=== PATIENT | male | born 1985 | race African-American/Black ===

== ENCOUNTER 2018-05-17 07:07 | Emergency (ER) | payer SELFPAY ==
[2018-05-17 07:34] LABS: ABS Basophils 0 10^3/ul (0-0.2); ABS Eosinophils 0.1 10^3/ul (0-0.6); ABS Lymphocytes 1.2 10^3/ul (1.0-4.8); ABS Monocytes 0.3 10^3/ul (0-0.8); ABS Neutrophils 1.7 10^3/ul (1.5-7.7); ABS Nucleated RBC 0 10^3/ul; Eosinophil % 1.7 %; Hematocrit 45 % (42-52); Hemoglobin 15.3 g/dl (14.0-18.0); Lymphocyte % 35.1 %; Mean Corpuscular HGB Conc 34 g/dl (31-36); Mean Corpuscular Hemoglobin 32 pg (27-31); Mean Corpuscular Volume 94 fL (80-94); Mean Platelet Volume 7.9 fL (7.4-10.4); Nucleated Red Blood Cells % 0.2; Platelet Count 204 10^3/ul (150-450); Red Blood Count 4.75 10^6/ul (4.00-5.40); Red Cell Distribution Width 13 % (10.5-15); White Blood Count 3.3 10^3/ul (3.5-10.8)
[2018-05-17] MEDS ORDERED: levETIRAcetam IV* 500 MG in NS 0.9% 100 ML* 100 ML IVPB ONE (07:41)
--- NOTE | 2018-05-17 07:44 | ED ---
Neurological HPI - HPI Summary HPI Summary: This patient is a 33 year old M presenting to [facility] with a chief complaint of seizures [employer]INTE[employer] WORK[employer]. His friend states a dog was barking and woke him up and then he goes up stairs and the patient was on the floor stumbling and incontinent. His friend states the patient was likely coming out of the seizure when he found him. His last known seizure was 3 months ago. He has a Hx of seizures and states he has not been taking his medication because he does not like the side effects. He states he first starting having seizures 11 years ago. - History of Current Complaint Chief Complaint: EDSeizure Stated Complaint: SEIZURES Time Seen by Provider: 05/17/18 07:14 Hx Obtained From: Patient Onset/Duration: Started minutes ago Onset Severity: Mild Current Severity: None Number of Seizures: 1 Pain Intensity: 0 Pain Scale Used: 0-10 Numeric Associated Signs and Symptoms: Positive: Seizure - Allergy/Home Medications Allergies/Adverse Reactions: Allergies Allergy/AdvReac Type Severity Reaction Status Date / Time No Known Allergies Allergy Verified 05/17/18 07:38 PMH/Surg Hx/FS Hx/Imm Hx Endocrine/Hematology History: Denies: Hx Diabetes Cardiovascular History: Denies: Hx Coronary Artery Disease Neurological History: Reports: Hx Seizures Infectious Disease History: No Infectious Disease History: Denies: Traveled Outside the [place] in Last 30 Days - Family History Known Family History: Negative: Cardiac Disease, Hypertension, Diabetes - Social History Alcohol Use: Occasionally Substance Use Type: Reports: Marijuana Smoking Status (MU): Light Every Day Tobacco Smoker Review of Systems Negative: Fever Neurological: Other - Seizures/convulsions All Other Systems Reviewed And Are Negative: Yes Physical Exam Vital Signs On Initial Exam: Initial Vitals Temp Pulse Resp BP Pulse Ox 96.9 F 63 18 136/73 100 05/17/18 07:13 05/17/18 07:13 05/17/18 07:13 05/17/18 07:13 05/17/18 07:13 Diagnostics - Vital Signs Vital Signs Temp Pulse Resp BP Pulse Ox 05/17/18 07:13 96.9 F 63 18 136/73 100 - Laboratory Lab Results: Lab Results 05/17/18 Range/Units 06:32 WBC 3.3 L (3.5-10.8) 10^3/ul RBC 4.75 (4.00-5.40) 10^6/ul Hgb 15.3 (14.0-18.0) g/dl Hct 45 (42-52) % MCV 94 (80-94) fL MCH 32 H (27-31) pg MCHC 34 (31-36) g/dl RDW 13 (10.5-15) % Plt Count 204 (150-450) 10^3/ul MPV 7.9 (7.4-10.4) fL Neut % (Auto) 52.9 % Lymph % (Auto) 35.1 % [place] % (Auto) 9.8 % Eos % (Auto) 1.7 % Baso % (Auto) 0.5 % Absolute Neuts (auto) 1.7 (1.5-7.7) 10^3/ul Absolute Lymphs (auto) 1.2 (1.0-4.8) 10^3/ul Absolute Monos (auto) 0.3 (0-0.8) 10^3/ul Absolute Eos (auto) 0.1 (0-0.6) 10^3/ul Absolute Basos (auto) 0 (0-0.2) 10^3/ul Absolute Nucleated RBC 0 10^3/ul Nucleated RBC % 0.2 Result Diagrams: 05/17/18 06:32 05/17/18 06:32 Lab Statement: Any lab studies that have been ordered have been reviewed, and results considered in the medical decision making process. - Radiology CXR Radiology Interpretation Completed By: Radiologist Summary of Radiographic Findings: No active cardiopulmonary disease noted. ED Provider has reviewed this report. - EKG 0715 Cardiac Rate: NL EKG Rhythm: Sinus Rhythm - [address] Segment: Normal Ectopy: None Summary of EKG Findings: No ST elevation. Re-Evaluation - Re-Evaluation First Eval Re-Evaluation Time: 09:43 Comment: Discussed results and plan for discharge with patient Course/Dx - Course Assessment/Plan: Blood work without any significant abnormality except for glucose of 111, lactic acid is 2.9 consistent with the seizure episodes. Alcohol level less than 10. In the ED course the patient was given Keppra [address] And discussed [address] Ricketts and he agrees with management. Patient will be given restriction for Keppra 750 BID and follow-up with Dr. Ricketts on May 27. I discussed all the findings and test results with the patient. Patient was instructed to return to the emergency room immediately if any of the symptoms return or worsens. Plan of care was discussed with the patient and understands and agrees. All questions were answered at patient satisfaction. There were no further complaints or concerns. Lung exam before discharge: CTA B/ L. Good air exchange. No wheezing or crackles heard. CVS: S1 and S2 present. No murmurs appreciated. Patient is alert and oriented x 3. Patient is hemodynamically stable. Patient will be discharged home with follow up PCP in the next 2-3 days - Differential Dx Differential Diagnoses Neuro: Positive: Seizure Disorder - Diagnoses Provider Diagnoses: Seizures - Physician Notifications Discussed Care Of Patient With: Alireza Ricketts - Neurology Instructed by Provider To: Have Pt Call For Appt. - Appointment for May 27 Discharge - Sign-Out/Discharge Documenting (check all that apply): Patient Departure - Discharge Patient Received Moderate/Deep Sedation with Procedure: No - Discharge Plan Condition: Stable Disposition: HOME Prescriptions: levETIRAcetam [Keppra] 250 mg PO BID #30 tablet levETIRAcetam TAB* [Keppra TAB*] 500 mg PO BID #30 tab Patient Education Materials: Recurrent Seizures in Adults (ED) Referrals: [facility]IAN REFERRAL [Outside] Additional Instructions: Follow up with Neurology on May 27. Return to ED with any new or worsening symptoms. - Billing Disposition and Condition Condition: STABLE Disposition: Home - Attestation Statements Document Initiated by Yecenia: Yes Documenting Scribe: Ulisses Gutiérrez Provider For Whom Yecenia is Documenting (Include Credential): Tong Jain MD Scribe Attestation: Ulisses Esteves scribed for Tong Jain MD on 05/18/18 at 0830. Scribe Documentation Reviewed: Yes Provider Attestation: The documentation as recorded by the Ulisses wells accurately reflects the service I personally performed and the decisions made by , Tong Jain MD Status of Scribe Document: Viewed
[2018-05-17] MEDS ORDERED: levETIRAcetam IV* 500 MG/5 ML VIAL ONE (07:47)
[2018-05-17 07:49] LABS: INR 0.97 (0.77-1.02)
[2018-05-17 07:50] LABS: ALT 10 U/L (7-52); AST 16 U/L (13-39); Albumin 4.5 g/dL (3.2-5.2); Albumin/Globulin Ratio 1.9 (1-3); Alkaline Phosphatase 45 U/L (34-104); Anion Gap 5 mmol/L (2-11); BUN/Creatinine Ratio 12.1 (8-20); Blood Urea Nitrogen 12 mg/dL (6-24); CO2 Carbon Dioxide 31 mmol/L (22-32); Calcium 9.8 mg/dL (8.6-10.3); Chloride 105 mmol/L (101-111); EGFR African American 106.7 (>60); EGFR Non-African American 88.2 (>60); Globulin 2.4 g/dL (2-4); Glucose 111 mg/dL (70-100); Magnesium 1.9 mg/dL (1.9-2.7); Potassium 4.4 mmol/L (3.5-5.0); Sodium 141 mmol/L (135-145); Total Protein 6.9 g/dL (6.4-8.9)
[2018-05-17 08:24] LABS: Alcohol < 10 mg/dL (<10)
[2018-05-17 08:38] LABS: TSH (Thyroid Stimulating Horm) 2.78 mcIU/mL (0.34-5.60)
[2018-05-17] MEDS ORDERED: Acetaminophen TAB* 325 MG PO ONE (09:21)
[2018-05-17] MEDS ORDERED: levETIRAcetam TAB* 500 MG PO ONE (09:36)
[2018-05-17 09:41] VITALS: BP 122/76
== END 2018-05-17 10:19 | disposition home or self-care (01) ==
LOC: ED 07:07
DX: G40.909 Epilepsy, unspecified, not intractable, without status epilepticus (principal); F17.210 Nicotine dependence, cigarettes, uncomplicated
CPT/HCPCS: 36415; 71045; 80053; 80177; 80320; 83605; 83735; 84443; 85025; 85610; 86703; 93005; 96365; 99284; A9270-GY; G0480

== ENCOUNTER 2018-05-23 05:39 | Emergency (ER) | payer SELFPAY ==
[2018-05-23] MEDS ORDERED: levETIRAcetam IV* 1,000 MG in NS 0.9% 100 ML* 100 ML IVPB ONE (05:55)
--- NOTE | 2018-05-23 06:06 | ED ---
Seizure - HPI Summary HPI Summary: 32-year-old male presents with seizure today. He states he has history of seizures. He states he only takes Keppra on an as-needed basis. He states he had a seizure couple days ago. He has a follow-up with neurology on but has not needed to call to confirm the appointment. He admits to some left shoulder pain but is full range of motion. he denies any chest pain, SOB, or dizziness. no headache. has not picked up his script for keppra since the last time was here. he denies any drug or ETOH use. friend heard him thrashing in room. unsure how long seizure was. patient arrives via ems post itical. states before this week has not had seizure in months. - History Of Current Complaint Chief Complaint: EDSeizure Time Seen by Provider: 05/23/18 05:46 - Allergies/Home Medications Allergies/Adverse Reactions: Allergies Allergy/AdvReac Type Severity Reaction Status Date / Time No Known Allergies Allergy Verified 05/17/18 07:38 PMH/Surg Hx/FS Hx/Imm Hx Endocrine/Hematology History: Denies: Hx Diabetes Cardiovascular History: Denies: Hx Coronary Artery Disease Neurological History: Reports: Hx Seizures Infectious Disease History: No Infectious Disease History: Denies: Traveled Outside the [place] in Last 30 Days - Family History Known Family History: Negative: Cardiac Disease, Hypertension, Diabetes - Social History Alcohol Use: Occasionally Substance Use Type: Reports: Marijuana Smoking Status (MU): Light Every Day Tobacco Smoker Review of Systems Negative: Fever Negative: Chest Pain Negative: Shortness Of Breath Neurological: Other - seizure All Other Systems Reviewed And Are Negative: Yes Physical Exam Triage Information Reviewed: Yes Vital Signs On Initial Exam: Initial Vitals Pulse BP Pulse Ox 69 124/58 99 05/23/18 05:40 05/23/18 05:40 05/23/18 05:40 Vital Signs Reviewed: Yes Appearance: Positive: Well-Appearing Skin: Positive: Warm, Dry Head/Face: Positive: Normal Head/Face Inspection Eyes: Positive: Normal, EOMI, CAREY, Conjunctiva Clear ENT: Positive: Normal ENT inspection, Pharynx normal, TMs normal Respiratory/Lung Sounds: Positive: Clear to Auscultation, Breath Sounds Present Cardiovascular: Positive: Normal, RRR Abdomen Description: Positive: Nontender, Soft Bowel Sounds: Positive: Present Musculoskeletal: Positive: Normal Neurological: Positive: Normal Psychiatric: Positive: Normal Diagnostics - Vital Signs Vital Signs Temp Pulse Resp BP Pulse Ox 05/23/18 05:46 99.1 F 80 16 124/58 98 05/23/18 05:44 74 99 05/23/18 05:40 69 124/58 99 - Laboratory Result Diagrams: 05/23/18 06:09 05/23/18 06:09 Lab Statement: Any lab studies that have been ordered have been reviewed, and results considered in the medical decision making process. - EKG No standard instances Cardiac Rate: NL, Bradycardia EKG Rhythm: Sinus Bradycardia Summary of EKG Findings: sinus bradycardia Re-Evaluation - Re-Evaluation First Eval Re-Evaluation Time: 07:08 Comment: discussed results Course/Dx - Course Course Of Treatment: 32-year-old male presents with seizure today. He states he has history of seizures. He states he only takes Keppra on an as-needed basis. He states he had a seizure couple days ago. He has a follow-up with neurology on 11 but has not needed to call to confirm the appointment. He admits to some left shoulder pain but is full range of motion. he denies any chest pain, SOB, or dizziness. no headache. has not picked up his script for keppra since the last time was here. on exam has normal neuro exam. full ROM shoulder. wbc normal. lactic elevated. gave dose of keppra here. encouraged that needs to start the keppra and flower picker script at pharmacy that was sent last visit. no repeat seizure activity in ED. patient understand and agrees with plan. - Diagnoses Differential Diagnosis/HQI/PQRI: Positive: Drug Toxicity, Metabolic Disorder, Known Seizure Disorder Provider Diagnoses: Seizure Discharge - Sign-Out/Discharge Documenting (check all that apply): Patient Departure Patient Received Moderate/Deep Sedation with Procedure: No - Discharge Plan Condition: Good Disposition: HOME Patient Education Materials: Epilepsy (ED) Referrals: No Primary Care Phys,NOPCP [Primary Care Provider] - Alireza Ricketts MD [Medical Doctor] - Additional Instructions: call neuro office for follow up Take keppra twice a day as previously prescribed Return to ED if develop any new or worsening symptoms - Billing Disposition and Condition Condition: GOOD Disposition: Home
[2018-05-23 06:26] LABS: ABS Basophils 0 10^3/ul (0-0.2); ABS Eosinophils 0 10^3/ul (0-0.6); ABS Lymphocytes 0.9 10^3/ul (1.0-4.8); ABS Monocytes 0.3 10^3/ul (0-0.8); ABS Neutrophils 2.9 10^3/ul (1.5-7.7); ABS Nucleated RBC 0 10^3/ul; Hematocrit 42 % (42-52); Hemoglobin 14.7 g/dl (14.0-18.0); Lymphocyte % 21.1 %; Mean Corpuscular HGB Conc 35 g/dl (31-36); Mean Corpuscular Hemoglobin 32 pg (27-31); Mean Corpuscular Volume 93 fL (80-94); Mean Platelet Volume 7.8 fL (7.4-10.4); Nucleated Red Blood Cells % 0.1; Platelet Count 207 10^3/ul (150-450); Red Blood Count 4.55 10^6/ul (4.00-5.40); Red Cell Distribution Width 13 % (10.5-15); White Blood Count 4.1 10^3/ul (3.5-10.8)
[2018-05-23 06:34] LABS: INR 0.99 (0.77-1.02)
[2018-05-23 06:44] LABS: ALT 11 U/L (7-52); AST 17 U/L (13-39); Albumin 4.3 g/dL (3.2-5.2); Alkaline Phosphatase 45 U/L (34-104); Anion Gap 6 mmol/L (2-11); BUN/Creatinine Ratio 10.5 (8-20); Blood Urea Nitrogen 9 mg/dL (6-24); CO2 Carbon Dioxide 28 mmol/L (22-32); Calcium 9.4 mg/dL (8.6-10.3); Chloride 105 mmol/L (101-111); EGFR African American 126.3 (>60); EGFR Non-African American 104.4 (>60); Globulin 2.2 g/dL (2-4); Glucose 92 mg/dL (70-100); Sodium 139 mmol/L (135-145); Total Protein 6.5 g/dL (6.4-8.9)
[2018-05-23 06:45] LABS: Alcohol < 10 mg/dL (<10)
[2018-05-23 08:18] LABS: Urine Appearance Clear; Urine Bilirubin Negative (Negative); Urine Blood Negative (Negative); Urine Color Straw; Urine Glucose Negative (Negative); Urine Ketones Negative (Negative); Urine Nitrite Negative (Negative); Urine Protein Negative (Negative); Urine Specific Gravity 1.009 (1.010-1.030); Urine Urobilinogen Negative (Negative)
[2018-05-23 08:34] VITALS: BP 123/61
[2018-05-24 09:42] LABS: Barbiturates Urine Screen None Detected (None Detect); Benzodiazepine Urine Screen None Detected (None Detect); Urine Cannabinoids Screen Presumptive Positive (None Detect)
[2018-05-27 13:17] LABS: Neisseria gonorrhoeae (GC) RNA Negative (Negative)
== END 2018-05-23 08:33 | disposition home or self-care (01) ==
LOC: ED 05:39
DX: G40.909 Epilepsy, unspecified, not intractable, without status epilepticus (principal); R00.1 Bradycardia, unspecified; Z72.0 Tobacco use
CPT/HCPCS: 36415; 80053; 80307; 80320; 81003; 83605; 83735; 85025; 85610; 87491; 87591; 93005; 96360; 99282; G0480

== ENCOUNTER 2018-06-24 10:47 | Emergency (ER) | payer MEDICAID ==
[2018-06-24] MEDS ORDERED: LORazepam INJ* 2 MG/ML 1 ML VIAL ONE ×2 (10:55)
--- NOTE | 2018-06-24 10:55 | ED ---
Neurological HPI - HPI Summary HPI Summary: Patient is a 32 y/o M presenting to ED via EMS from [facility] after having a seizure. He was walking down a staircase when seizure onset, patient fell down three steps as a result. Seizure was witnessed by roommate, patient was reported to have been hitting his head on tile floor during seizure. EMS reports patient was maintaining airway, had good perfusion, BG of 104. Multiple contusions and chin laceration are also reported. They note that the patient has become verbal upon arrival to ED. However, patient is confused in ED, level 5 caveat due to EMS. In room, patient repeated attempts to leave the room and is combative with staff. PMHx of seizures, review of medical records show that patient is noted to be combative during post-ictal state. Home medications and allergies are reviewed. - History of Current Complaint Stated Complaint: SEIZURES Hx Obtained From: EMS, Medical Records Hx From Patient Unobtainable Due To: Altered Mental Status Onset/Duration: Sudden Onset - seizure, Still Present - AMS Timing: Intermittent Episodes Lasting: Neurological Deficit Location: Generalized Character: Other: - AMS, seizure Syncope Context: Witnessed, Exertion - walking down staircase Frequency: Episodes x___ - 1 episode reported Aggravating: Nothing Alleviating: Nothing Associated Signs and Symptoms: Positive: Agitation, AMS - Allergy/Home Medications Allergies/Adverse Reactions: Allergies Allergy/AdvReac Type Severity Reaction Status Date / Time No Known Allergies Allergy Verified 06/24/18 11:28 PMH/Surg Hx/FS Hx/Imm Hx Endocrine/Hematology History: Denies: Hx Diabetes Cardiovascular History: Denies: Hx Coronary Artery Disease Sensory History: Denies: Hx Contacts or Glasses, Hx Hearing Aid Opthamlomology History: Denies: Hx Contacts or Glasses Neurological History: Reports: Hx Seizures - Family History Known Family History: Negative: Cardiac Disease, Hypertension, Diabetes - Social History Alcohol Use: UTD Hx Substance Use: No Substance Use Type: Reports: Marijuana Smoking Status (MU): Light Every Day Tobacco Smoker Review of Systems - ROS Summary Review of Systems Summary: LEVEL 5 CAVEAT, AMS Negative: Fever - on vitals, temp is 97.5 F Skin: Other - POSITIVE - CHIN LACERATION, CONTUSIONS Neurological: Other - POSITIVE - SEIZURES, AMS All Other Systems Reviewed And Are Negative: No - Comments Additional Review of Systems Comments: LEVEL 5 CAVEAT, AMS Physical Exam - Summary Physical Exam Summary: General: Well appearing Cardiovascular: Skin is well perfused Pulmonary: No respiratory distress, no tachypnea Abdomen: Non-distended Skin: Warm, pink, dry; hematoma at right parietal cortex, multiple contusions to face on right side, abrasion to left collar bone, laceration over chin with wet blood visible. Psych: Normal affect Neuro: alert but confused, GCS 14, moving all extremities, level 5 caveat due to AMS. Triage Information Reviewed: Yes Vital Signs On Initial Exam: Initial Vitals Temp Pulse Resp BP Pulse Ox 97.5 F 88 18 130/83 95 06/24/18 10:51 06/24/18 10:51 06/24/18 10:51 06/24/18 10:51 06/24/18 10:51 Vital Signs Reviewed: Yes Completion Of Physical Exam Limited Due To: Level 5 Procedures - Procedure Summary Procedure Summary: Patient has a 1 cm lip/chin laceration that appears to be [id number]. 2 cc lido on exterior of chin used, patient had 2 sutures 5.0 nylon, interior of lip, 3 cc lido, 2 sutures of 5.0 vicryl used. No complications. - Laceration/Wound Repair chin laceration Location: mouth - lip laceration Anesthesia: Local, Lido lip laceration Location: mouth - lip laceration Description: Linear - 1 cm lip laceration that is through and through Anesthesia: Local, Lido Length, Depth and Shape: 1 cm Suture Type: Nylon - 5.0 used , Vicryl - 2 on interior of lip 1 Location: face - chin, mouth - interior lip Description: Linear - 1 cm chin/lip laceration that appears to be through-and- through Anesthesia: Local, Lido Length, Depth and Shape: 1 cm Laceration/Wound Explored: clean Closure: Single Layer Suture Type: Nylon - 2 sutures of 5.0 used , Vicryl - 2 on interior of lip Number of Sutures: 4 Diagnostics - Laboratory Result Diagrams: 06/24/18 11:17 06/24/18 11:17 Lab Statement: Any lab studies that have been ordered have been reviewed, and results considered in the medical decision making process. - Radiology CHEST X-RAY Radiology Interpretation Completed By: Radiologist Summary of Radiographic Findings: CXR IMPRESSION: NO ACTIVE CARDIOPULMONARY DISEASE IS NOTED. THIS REPORT WAS REVIEWED BY DR. HUSSEIN. LEFT CLAVICLE X-RAY Radiology Interpretation Completed By: Radiologist Summary of Radiographic Findings: LEFT CLAVICLE IMPRESSION: No fracture of the left clavicle is noted. This report was reviewed by Dr. Hussein. - CT BRAIN CT CT Interpretation Completed By: Radiologist Summary of CT Findings: BRAIN CT IMPRESSION: NO ACUTE INTRACRANIAL PATHOLOGY. THIS REPORT WAS REVIEWED BY DR. HUSSEIN. MAXILLOFACIAL CT CT Interpretation Completed By: Radiologist Summary of CT Findings: MAXILLOFACIAL CT IMPRESSION: NO FACIAL FRACTURE. THIS REPORT WAS REVIEWED BY DR. HUSSEIN. CERVICAL SPINE CT CT Interpretation Completed By: Radiologist Summary of CT Findings: CERVICAL SPINE CT IMPRESSION: NO EVIDENCE FOR FRACTURE. THIS REPORT WAS REVIEWED BY DR. HUSSEIN. - EKG 1138 Cardiac Rate: NL - rate of 67 BPM EKG Rhythm: Sinus Rhythm Summary of EKG Findings: EKG showed sinus rhythm with rate of 67 BPM, normal axis, normal [place], normal QRS, normal QTc, T waves are normal, early repolarization, normal EKG. Re-Evaluation - Re-Evaluation First Eval Re-Evaluation Time: 11:12 Comment: More calm, more cooperative, but still confused. Second Eval Re-Evaluation Time: 13:32 Comment: Patient is screaming in his room about pain at his jaw, pain medication to be given. Third Eval Re-Evaluation Time: 14:16 Comment: Laceration repair was done. Course/Dx - Course Course Of Treatment: Patient is a 32 y/o M presenting to ED via EMS from [facility] after having a seizure. He was walking down a staircase when seizure onset, patient fell down three steps as a result. Seizure was witnessed by roommate, patient was reported to have been hitting his head on tile floor during seizure. EMS reports patient was maintaining airway, had good perfusion, BG of 104. Multiple contusions and chin laceration are also reported. They note that the patient has become verbal upon arrival to ED. However, patient is confused in ED, level 5 caveat due to EMS. PMHx of seizures, review of medical records show that patient is noted to be combative during post-ictal state. On physical exam, patient has hematoma right parietal cortex, multiple contusions to face on right side, abrasion to left collar bone, laceration over chin, wet blood is visible. Patient moving all extremities, alert but confused, GCS 14, level 5 caveat due to AMS. EKG showed sinus rhythm with rate of 67 BPM, normal axis, normal NJ, normal QRS, normal QTc, T waves are normal, early repolarization, normal EKG. BRAIN CT IMPRESSION: NO ACUTE INTRACRANIAL PATHOLOGY. CERVICAL SPINE CT IMPRESSION: NO EVIDENCE FOR FRACTURE. MAXILLOFACIAL CT IMPRESSION: NO FACIAL FRACTURE. LEFT CLAVICLE IMPRESSION: No fracture of the left clavicle is noted. CXR IMPRESSION: NO ACTIVE CARDIOPULMONARY DISEASE IS NOTED. Labs showed MCV 95, MCH 32, absolute neuts 0.8, glucose 107, lactic acid 1.2, AST 45. Patient was negative for serum alc. Patient has a 1 cm lip/chin laceration that is [id number]. 2 cc lido on exterior of chin used, patient had 2 sutures 5.0 nylon, interior of lip, 3 cc lido, 2 sutures of 5.0 vicryl used. No complications. Patient's case was discussed with Dr. Leal, oral surgery, at 1511, Dr. Velasco recommends out patient follow up and augmentin for the patient. During ED course, patient received 4 mg morphine IM, Ativan 2 mg IM, Let Gel 3 ml TOPICAL ONCE, and augmentin 875 mg PO ONCE. Patient was discharged to home with oral surgery follow up. - Diagnoses Provider Diagnoses: Seizure disorder, Lip laceration - Physician Notifications Discussed Care Of Patient With: Nigel Leal JR Time Discussed With Above Provider: 15:11 Instructed by Provider To: Other - Patient's case was discussed with Dr. Leal , oral surgery, at 1511, Dr. Velasco recommends out patient follow up and augmentin for the patient. Discharge - Sign-Out/Discharge Documenting (check all that apply): Patient Departure - discharge Patient Received Moderate/Deep Sedation with Procedure: No - Discharge Plan Condition: Stable Disposition: HOME Prescriptions: Amoxicillin/Clavulanate TAB* [Augmentin TAB 875*] 875 mg PO BID #19 tab Patient Education Materials: Laceration (ED), Epilepsy (ED) Print Language: [place] Referrals: Nigel Leal JR, [facility] [Doctor of Dental Surgery] - Additional Instructions: You need to follow-up with the oral surgeon, Dr. Scutari, to have your jaw wound evaluated. External stitches need to be removed in 7d. - Billing Disposition and Condition Condition: STABLE Disposition: Home - Attestation Statements Document Initiated by Yecenia: Yes Documenting Scribe: SHYANN LANDAVERDE Provider For Whom Yecenia is Documenting (Include Credential): ZAYNAB SHRESTHA MD Scribe Attestation: I, SHYANN LANDAVERDE, scribed for ZAYNAB HUSSEIN MD on 06/24/18 at 2213. Scribe Documentation Reviewed: Yes Provider Attestation: The documentation as recorded by the scribeSHYANN accurately reflects the service I personally performed and the decisions made by me, ZAYNAB HUSSEIN MD Status of Scribe Document: Viewed
[2018-06-24] MEDS ORDERED: LORazepam INJ* 2 MG/ML 1 ML VIAL IM ONE (10:57)
[2018-06-24 11:23] LABS: ABS Basophils 0 10^3/ul (0-0.2); ABS Eosinophils 0 10^3/ul (0-0.6); ABS Lymphocytes 0.8 10^3/ul (1.0-4.8); ABS Monocytes 0.3 10^3/ul (0-0.8); ABS Neutrophils 3.2 10^3/ul (1.5-7.7); ABS Nucleated RBC 0 10^3/ul; Eosinophil % 0.4 %; Hematocrit 46 % (42-52); Hemoglobin 15.6 g/dl (14.0-18.0); Mean Corpuscular HGB Conc 34 g/dl (31-36); Mean Corpuscular Hemoglobin 32 pg (27-31); Mean Corpuscular Volume 95 fL (80-94); Mean Platelet Volume 8.4 fL (7.4-10.4); Nucleated Red Blood Cells % 0.1; Platelet Count 164 10^3/ul (150-450); Red Blood Count 4.84 10^6/ul (4.00-5.40); Red Cell Distribution Width 13 % (10.5-15); White Blood Count 4.3 10^3/ul (3.5-10.8)
[2018-06-24 11:31] LABS: INR 0.94 (0.77-1.02)
[2018-06-24 11:41] LABS: ALT 34 U/L (7-52); AST 45 U/L (13-39); Albumin 4.4 g/dL (3.2-5.2); Albumin/Globulin Ratio 1.9 (1-3); Alkaline Phosphatase 44 U/L (34-104); Anion Gap 5 mmol/L (2-11); BUN/Creatinine Ratio 10.1 (8-20); Blood Urea Nitrogen 9 mg/dL (6-24); CO2 Carbon Dioxide 28 mmol/L (22-32); Calcium 9.1 mg/dL (8.6-10.3); Chloride 106 mmol/L (101-111); EGFR African American 121.4 (>60); EGFR Non-African American 100.4 (>60); Globulin 2.3 g/dL (2-4); Glucose 107 mg/dL (70-100); Magnesium 1.9 mg/dL (1.9-2.7); Sodium 139 mmol/L (135-145); Total Protein 6.7 g/dL (6.4-8.9)
[2018-06-24 12:01] LABS: Alcohol < 10 mg/dL (<10)
[2018-06-24] MEDS ORDERED: Morphine 10 MG/ML VIAL (1 ml) IM ONE (13:32)
[2018-06-24] MEDS ORDERED: Lidocaine/Epineph/Tetraca GEL* 3 ML GEL IN SYR TOPICAL ONE (13:33)
[2018-06-24] MEDS ORDERED: Lidocaine/Epineph/Tetraca GEL* 3 ML GEL IN SYR ONE (13:34)
[2018-06-24] MEDS ORDERED: Morphine 4 MG/ML VIAL (1 ml) 4 MG/ML VIAL ONE ×2 (13:34)
[2018-06-24] MEDS ORDERED: Morphine 4 MG/ML VIAL (1 ml) 4 MG/ML VIAL IV ONE (13:39)
[2018-06-24] MEDS ORDERED: Amoxicillin/Clavulanate TAB* 875 MG PO ONE ×2 (15:15)
[2018-06-24 15:22] VITALS: BP 100/56
== END 2018-06-24 15:27 | disposition home or self-care (01) ==
LOC: ED 10:47
DX: S01.511A Laceration without foreign body of lip, initial encounter (principal); G40.909 Epilepsy, unspecified, not intractable, without status epilepticus; W10.9XXA Fall (on) (from) unspecified stairs and steps, initial encounter; Y92.9 Unspecified place or not applicable; F17.210 Nicotine dependence, cigarettes, uncomplicated
CPT/HCPCS: 12011; 36415; 70450; 70486; 71045; 72125; 80053; 80320; 83605; 83735; 85025; 85610; 93005; 96372; 96374; 99283; A9270-GY; G0480; J2060; J2270

== ENCOUNTER 2018-08-13 10:53 | Emergency (ER) | payer MEDICAID, OTHER ==
--- NOTE | 2018-08-13 11:26 | ED ---
Seizure - HPI Summary HPI Summary: 32 year old male presents to the emergency department via ALS after experiencing a seizure. According to ALS, the seizure was witnessed by his roommate and lasted for 1 minute. Pt has a history of seizures with the last one occurring a month ago. He - History Of Current Complaint Chief Complaint: EDSeizure Time Seen by Provider: 08/13/18 11:07 Hx Obtained From: Patient - Allergies/Home Medications Allergies/Adverse Reactions: Allergies Allergy/AdvReac Type Severity Reaction Status Date / Time No Known Allergies Allergy Verified 08/13/18 11:09 PMH/Surg Hx/FS Hx/Imm Hx Endocrine/Hematology History: Denies: Hx Diabetes Cardiovascular History: Denies: Hx Coronary Artery Disease Sensory History: Denies: Hx Contacts or Glasses, Hx Hearing Aid Opthamlomology History: Denies: Hx Contacts or Glasses Neurological History: Reports: Hx Seizures Infectious Disease History: No Infectious Disease History: Denies: Traveled Outside the [place] in Last 30 Days - Family History Known Family History: Negative: Cardiac Disease, Hypertension, Diabetes - Social History Alcohol Use: unknown Hx Substance Use: No Substance Use Type: Reports: Marijuana Smoking Status (MU): Light Every Day Tobacco Smoker Physical Exam Vital Signs On Initial Exam: Initial Vitals Temp Pulse Resp BP Pulse Ox 98.1 F 63 15 126/64 99 08/13/18 11:00 08/13/18 11:00 08/13/18 11:00 08/13/18 11:00 08/13/18 11:00 Diagnostics - Vital Signs Vital Signs Temp Pulse Resp BP Pulse Ox 08/13/18 11:01 63 13 98 08/13/18 11:00 98.1 F 72 13 126/64 98 - Laboratory Lab Statement: Any lab studies that have been ordered have been reviewed, and results considered in the medical decision making process. Discharge - Discharge Plan Referrals: No Primary Care Phys,NOPCP [Primary Care Provider] -
[2018-08-13 11:58] LABS: ABS Basophils 0 10^3/ul (0-0.2); ABS Eosinophils 0 10^3/ul (0-0.6); ABS Monocytes 0.4 10^3/ul (0-0.8); ABS Neutrophils 2.7 10^3/ul (1.5-7.7); ABS Nucleated RBC 0 10^3/ul; Eosinophil % 1.1 %; Hematocrit 45 % (36-46); Hemoglobin 15.8 g/dL (14.0-18.0); Lymphocyte % 24.7 %; Mean Corpuscular HGB Conc 35 g/dL (31-36); Mean Corpuscular Hemoglobin 32 pg (27-31); Mean Corpuscular Volume 93 fL (80-94); Nucleated Red Blood Cells % 0.1; Platelet Count 207 10^3/uL (150-450); Red Blood Count 4.87 10^6 /uL (4.18-5.48); Red Cell Distribution Width 12 % (10.5-15); White Blood Count 4.2 10^3/uL (3.5-10.8)
--- NOTE | 2018-08-13 12:01 | ED ---
Neurological HPI - HPI Summary HPI Summary: This patient is a 32 year old M arriving to the ER via ALS from home with a chief complaint of one minute witness tonic-clonic seizure. Patient is post- ictal on arrival and confused. However, in the room during evaluation, he is A& Ox3. He does not remember the incident. He denies incontinence. Patient is not taking Keppra regularly nor Augmentin. He reports his last seizure was this April. Patient has history of seizures but not DM or cardiac disease. No FHx of DM, cardiac disease, HTN. Patient smokes cigarettes, drinks beer, and uses marijuana. - History of Current Complaint Chief Complaint: EDSeizure Stated Complaint: SEISURE PER EMS Time Seen by Provider: 08/13/18 11:07 Hx Obtained From: Patient Onset/Duration: Started hours ago - This morning, Resolved - not having seizure Timing: Sudden Onset Current Severity: None - pain is denied Number of Seizures: 1 Pain Intensity: 0 Pain Scale Used: 0-10 Numeric Character: Other: - seizure Syncope Context: Witnessed - witnessed seizure Frequency: Episodes x___ - 1 reported Aggravating: Nothing Alleviating: Nothing Associated Signs and Symptoms: Positive: Seizure - since resolved. Negative: Incontinent Bladder/Bowel Similar Episode/Dx as: Last seizure april - Allergy/Home Medications Allergies/Adverse Reactions: Allergies Allergy/AdvReac Type Severity Reaction Status Date / Time No Known Allergies Allergy Verified 08/13/18 11:09 PMH/Surg Hx/FS Hx/Imm Hx Endocrine/Hematology History: Denies: Hx Diabetes Cardiovascular History: Denies: Hx Coronary Artery Disease Sensory History: Denies: Hx Contacts or Glasses, Hx Hearing Aid Opthamlomology History: Denies: Hx Contacts or Glasses Neurological History: Reports: Hx Seizures Infectious Disease History: No Infectious Disease History: Denies: Traveled Outside the [place] in Last 30 Days - Family History Known Family History: Negative: Cardiac Disease, Hypertension, Diabetes - Social History Alcohol Use: Occasionally Hx Substance Use: Yes Substance Use Type: Reports: Marijuana Hx Tobacco Use: Yes Smoking Status (MU): Light Every Day Tobacco Smoker Review of Systems Negative: Fever - on vitals, temp 98.1 F Neurological: Other - Confused upon arrival, Seizure this morning All Other Systems Reviewed And Are Negative: Yes Physical Exam - Summary Physical Exam Summary: VITAL SIGNS: Reviewed. GENERAL: Patient is a well-developed and nourished male who is lying comfortable in the stretcher.Patient is not in any acute respiratory distress. HEAD AND FACE: No signs of trauma. No ecchymosis, hematomas or skull depressions. No sinus tenderness. EYES: PERRLA, EOMI x 2, No injected conjunctiva, no nystagmus. No photophobia. EARS: Hearing grossly intact. Ear canals and tympanic membranes are within normal limits. MOUTH: Oropharynx within normal limits. Small abrasion on tongue NECK: Supple, trachea is midline, no adenopathy, no JVD, no carotid bruit, no c- spine tenderness, neck with full ROM. No meningeal signs, no Kernig's or brudzinskis signs. CHEST: Symmetric, no tenderness at palpation LUNGS: Clear to auscultation bilaterally. No wheezing or crackles. CVS: Regular rate and rhythm, S1 and S2 present, no murmurs or gallops appreciated. ABDOMEN: Soft, non-tender. No signs of distention. No rebound no guarding, and no masses palpated. Bowel sounds are normal. EXTREMITIES: FROM in all major joints, no edema, no cyanosis or clubbing. NEURO: Slight confused secondary to post-ictal state. Speech is normal and follows commands. SKIN: Dry and warm GCS: 15 Triage Information Reviewed: Yes Vital Signs On Initial Exam: Initial Vitals Temp Pulse Resp BP Pulse Ox 98.1 F 63 15 126/64 99 08/13/18 11:00 08/13/18 11:00 08/13/18 11:00 08/13/18 11:00 08/13/18 11:00 Vital Signs Reviewed: Yes Diagnostics - Vital Signs Vital Signs Temp Pulse Resp BP Pulse Ox 08/13/18 11:01 63 13 98 08/13/18 11:00 98.1 F 72 13 126/64 98 - Laboratory Result Diagrams: 08/13/18 11:46 08/13/18 11:41 Lab Statement: Any lab studies that have been ordered have been reviewed, and results considered in the medical decision making process. - Radiology CXR Radiology Interpretation Completed By: ED Physician Summary of Radiographic Findings: no acute pathology, pending official report. - EKG 1138 Cardiac Rate: Bradycardia - rate of 57 BPM EKG Rhythm: Sinus Bradycardia Summary of EKG Findings: EKG showed sinus bradycardia with rate of 57 BPM, no ST elevations. Re-Evaluation - Re-Evaluation First Eval Re-Evaluation Time: 13:33 Comment: Plan of care was discussed with the patient and understands and agrees. All questions were answered at patient satisfaction. There were no further complaints or concerns. Lung exam before discharge: CTA B/L. Good air exchange. No wheezing or crackles heard. CVS: S1 and S2 present. No murmurs appreciated. Patient is alert and oriented x 3. Patient is hemodynamically stable. Patient will be discharged home with follow up PCP in the next 2-3 days Course/Dx - Course Assessment/Plan: Patient is a 32-year-old male who presents to the emergency department with a chief complaint of having a seizure. The patient has history of epilepsy for which the patient is put to be taking Keppra. However he reports that he is not very consistent with taking Keppra. He reports that he recently moved to this area from [place]. Test results without any significant abnormality except for total bilirubin of 1.6. Patient was given Keppra 750 mg By mouth. I discussed my physical exam and findings with Dr. Rocha from neurology who recommends for the patient to be discharged and follow- up at his office. I discussed all the findings and test results with the patient and he agrees. He already has prescription for Keppra he will continue taking medications. Plan of care was discussed with the patient and understands and agrees. All questions were answered at patient satisfaction. There were no further complaints or concerns. Lung exam before discharge: CTA B/ L. Good air exchange. No wheezing or crackles heard. CVS: S1 and S2 present. No murmurs appreciated. Patient is alert and oriented x 3. Patient is hemodynamically stable. Patient will be discharged home with follow up PCP in the next 2-3 days - Diagnoses Provider Diagnoses: Seizure - Physician Notifications Discussed Care Of Patient With: Donavon Rocha Time Discussed With Above Provider: 13:19 Instructed by Provider To: Other - Patient's case was discussed with Dr. Rocha, Dr. Rocha is agreeable with management, patient will be discharged to home and will follow up with Dr. Rocha in office. Discharge - Sign-Out/Discharge Documenting (check all that apply): Patient Departure - Discharge Patient Received Moderate/Deep Sedation with Procedure: No - Discharge Plan Condition: Stable Disposition: HOME Referrals: [facility] [Outside] - 3 Days Donavon Rocha MD [Medical Doctor] - 3 Days Additional Instructions: Follow up with your primary care provider and Dr. Rocha (neurologist) in 3 days. RETURN TO THE ER FOR WORSENING OR CHANGING SYMPTOMS. - Billing Disposition and Condition Condition: STABLE Disposition: Home - Attestation Statements Document Initiated by Scribe: Yes Documenting Scribe: Ronnie Estevez Provider For Whom Yecenia is Documenting (Include Credential): Tong Jain MD Scribe Attestation: IRonnie, scribed for Tong Jain MD on 08/13/18 at 2155. Scribe Documentation Reviewed: Yes Provider Attestation: The documentation as recorded by the scribruperto, Ronnie Estevez accurately reflects the service I personally performed and the decisions made by me, Tong Jain MD Status of Scribe Document: Viewed
[2018-08-13 12:07] LABS: INR 1.11 (0.82-1.09)
[2018-08-13 12:11] LABS: Albumin 4.9 g/dL (3.2-5.2); BUN/Creatinine Ratio 15.2 (8-20); Calcium 9.5 mg/dL (8.6-10.3); EGFR African American 116.9 (>60); EGFR Non-African American 96.6 (>60); Globulin 2.5 g/dL (2-4); Magnesium 1.9 mg/dL (1.9-2.7); Potassium 3.8 mmol/L (3.5-5.0); Total Bilirubin 1.6 mg/dL (0.2-1.0); Total Protein 7.4 g/dL (6.4-8.9)
[2018-08-13 12:56] LABS: TSH (Thyroid Stimulating Horm) 2.5 mcIU/mL (0.34-5.60)
[2018-08-13] MEDS ORDERED: levETIRAcetam TAB* 500 MG PO ONE (13:28)
[2018-08-13 14:30] VITALS: BP 110/54
== END 2018-08-13 14:28 | disposition home or self-care (01) ==
LOC: ED 10:53
DX: G40.909 Epilepsy, unspecified, not intractable, without status epilepticus (principal); F17.210 Nicotine dependence, cigarettes, uncomplicated
CPT/HCPCS: 36415; 71045; 80053; 80177; 83605; 83735; 84443; 85025; 85610; 93005; 99283; A9270-GY

== ENCOUNTER 2018-09-20 05:05 | Emergency (ER) | payer MEDICAID, OTHER ==
--- NOTE | 2018-09-20 05:45 | ED ---
Seizure - HPI Summary HPI Summary: Pt. is a 32 y.o male who presents to the ER for evaluation after an unwitnessed seizure that occurred this am. Pt. has a hx of seizures and is rx Keppra 750mg BID by neurology. Pt. states he does not like the way it makes him feel and typically takes "lower dose" (250mg tablet.) Pt. states he is currently staying at the [employer] [facility]. Pt. states he was in his bed sleeping this morning when he states he woke up after a seizure. Pt. states he awoke in bed and did not fall to the ground. Pt. denies injury. Denies recent illness, fever, cough, CP, SOB, abd. pain, V/D. Sxs are moderate in severity. No current modifying factors. Pt. states after his seizure this morning he took 250mg Keppra and went to the [employer] help desk associate and asked employee if they could watch him to see if he had another seizure. Employee said they were not able to watch him so he called 911. - History Of Current Complaint Chief Complaint: EDSeizure Time Seen by Provider: 09/20/18 05:36 Hx Obtained From: Patient - Allergies/Home Medications Allergies/Adverse Reactions: Allergies Allergy/AdvReac Type Severity Reaction Status Date / Time No Known Allergies Allergy Verified 08/13/18 11:09 PMH/Surg Hx/FS Hx/Imm Hx Previously Healthy: Yes Endocrine/Hematology History: Denies: Hx Diabetes Cardiovascular History: Denies: Hx Coronary Artery Disease Sensory History: Denies: Hx Contacts or Glasses, Hx Hearing Aid Opthamlomology History: Denies: Hx Contacts or Glasses Neurological History: Reports: Hx Seizures Infectious Disease History: No Infectious Disease History: Denies: Traveled Outside the [place] in Last 30 Days - Family History Known Family History: Negative: Cardiac Disease, Hypertension, Diabetes - Social History Occupation: Unemployed Lives: Alone Alcohol Use: Occasionally Hx Substance Use: Yes Substance Use Type: Reports: Marijuana Hx Tobacco Use: Yes Smoking Status (MU): Light Every Day Tobacco Smoker Review of Systems Constitutional: Negative Negative: Fever, Chills Eyes: Negative ENT: Negative Cardiovascular: Negative Respiratory: Negative Gastrointestinal: Negative Negative: Abdominal Pain, Vomiting, Diarrhea Musculoskeletal: Negative Skin: Negative Neurological: Other - seizure All Other Systems Reviewed And Are Negative: Yes Physical Exam Triage Information Reviewed: Yes Vital Signs On Initial Exam: Initial Vitals Temp Pulse Resp BP Pulse Ox 98 F 59 16 118/63 100 09/20/18 05:12 09/20/18 05:12 09/20/18 05:12 09/20/18 05:12 09/20/18 05:12 Vital Signs Reviewed: Yes Appearance: Positive: Well-Appearing - Pt. lying in bed with sweatshirt over his head. Easily arousable. Answers questions appropriately. Awake, alert and O x 3. Skin: Positive: Warm, Dry Head/Face: Positive: Normal Head/Face Inspection. Negative: Cephalohematoma Eyes: Positive: Normal, EOMI, CAREY, Conjunctiva Clear Neck: Positive: Supple, Nontender Respiratory/Lung Sounds: Positive: Clear to Auscultation, Breath Sounds Present Cardiovascular: Positive: Normal, RRR Musculoskeletal: Positive: Normal, Strength/ROM Intact - moving all 4 extremities without pain. Neurological: Positive: Normal, Alert, Oriented to Person Place, Time, CN Intact II-III Psychiatric: Positive: Affect/Mood Appropriate - [place] Coma Scale Best Eye Response: 4 - Spontaneous Best Motor Response: 6 - Obeys Commands Best Verbal Response: 5 - Oriented Coma Scale Total: 15 Diagnostics - Vital Signs Vital Signs Temp Pulse Resp BP Pulse Ox 09/20/18 05:12 98 F 59 16 118/63 100 - Laboratory Result Diagrams: 09/20/18 06:05 09/20/18 06:05 Lab Statement: Any lab studies that have been ordered have been reviewed, and results considered in the medical decision making process. Course/Dx - Course Course Of Treatment: Pt. presenting after seizure per pt. He is afebrile and stable VS. On exam pt. is awake, alert and oriented x 3. No signs of injury. Will check basic labs. Pt. was given an additional 500mg Keppra since he only took 250mg today. ECG done at 611 shows a sinus bradycardia of 49bpm, normal axis, no STEMI, similar to prior tracing. Labs are unremarkable. Pt. has add no seizure activity in ED. Pt. states he has a neurology apt. on 09/23. Pt. states he does not need a refill on his medications. Strongly advised pt. to take his Keppra 750mg BID as prescribed. To return to ER if sxs change or worsen. Pt. understands and agrees with plan. - Diagnoses Differential Diagnosis/HQI/PQRI: Positive: Metabolic Disorder, Known Seizure Disorder Provider Diagnoses: Seizure disorder, Noncompliance with medications Discharge - Sign-Out/Discharge Documenting (check all that apply): Patient Departure Patient Received Moderate/Deep Sedation with Procedure: No - Discharge Plan Condition: Improved Disposition: HOME Patient Education Materials: Recurrent Seizures in Adults (ED) Referrals: Doc Garcia MD [Medical Doctor] - Additional Instructions: Follow up with neurology as scheduled for on 09/23 Take Keppra 750mg every 12 hours as prescribed Return to ER if symptoms change or worsen - Billing Disposition and Condition Condition: IMPROVED Disposition: Home
[2018-09-20] MEDS ORDERED: levETIRAcetam TAB* 500 MG PO ONE (05:55)
[2018-09-20 06:20] LABS: ABS Lymphocytes 0.7 10^3/ul (1.0-4.8); ABS Monocytes 0.6 10^3/ul (0-0.8); Eosinophil % 0.3 %; Hematocrit 42 % (42-52); Hemoglobin 14.7 g/dL (14.0-18.0); Lymphocyte % 7.7 %; Mean Corpuscular HGB Conc 35 g/dL (31-36); Mean Corpuscular Hemoglobin 33 pg (27-31); Mean Corpuscular Volume 92 fL (80-94); Mean Platelet Volume 7.8 fL (7.4-10.4); Nucleated Red Blood Cells % 0.1; Platelet Count 242 10^3/uL (150-450); Red Blood Count 4.52 10^6 /uL (4.18-5.48); Red Cell Distribution Width 13 % (10-15); White Blood Count 9.5 10^3/uL (3.5-10.8)
[2018-09-20 06:36] LABS: Albumin 4.4 g/dL (3.2-5.2); BUN/Creatinine Ratio 15.6 (8-20); Calcium 9.4 mg/dL (8.6-10.3); EGFR African American 143.5 (>60); EGFR Non-African American 118.6 (>60); Globulin 2.2 g/dL (2-4); Potassium 4.3 mmol/L (3.5-5.0); Total Bilirubin 1.1 mg/dL (0.2-1.0); Total Protein 6.6 g/dL (6.4-8.9)
[2018-09-20 07:45] VITALS: BP 119/81
== END 2018-09-20 07:44 | disposition home or self-care (01) ==
LOC: ED 05:05
DX: G40.909 Epilepsy, unspecified, not intractable, without status epilepticus (principal); T42.6X6A Underdosing of other antiepileptic and sedative-hypnotic drugs, initial encounter; Z91.128 Patient's intentional underdosing of medication regimen for other reason; Y92.9 Unspecified place or not applicable; R00.1 Bradycardia, unspecified; F17.200 Nicotine dependence, unspecified, uncomplicated
CPT/HCPCS: 36415; 80053; 83605; 83735; 85025; 93005; 99283; A9270-GY

== ENCOUNTER 2018-09-23 08:38 | Emergency (ER) | payer OTHER ==
[2018-09-23] MEDS ORDERED: levETIRAcetam 1000MG IVPREMIX* 1,000 MG/100 ML BAG IVPB ONE (08:47)
--- NOTE | 2018-09-23 08:50 | ED ---
Altered Mental Status - HPI Summary HPI Summary: The patient is a 32 y/o M arriving by ambulance to [facility] with a chief complaint of seizure with LOC and unresponsiveness immediately [employer]. Per EMS, the patient was found in the hotel lobby in the prone position after sustaining a seizure in which someone helped him to the ground. When EMS arrived, he was unresponsive , but he began to regain consciousness in route. In the ambulance, he had a blood sugar of 33, but BP and HR were normal. In the ED, the patient is awake and states that he isn't sure what happened. He additionally c/o headache, which is rated 8/10 in severity. He denies fever, chills, erythema of eyes, sore throat, CP, SOB, cough, abdominal pain, N/V, dysuria, hematuria, myalgia, edema, rash, or dizziness. He has hx of seizures and had a planned appointment with Dr. Rocha today at 1000. He takes Keppra, but hasn't taken it for the last three days since he last had a seizure and was in the ED but otherwise hasn't been sick recently. No hx of DM. Last ate breakfast this morning with a lot of apple juice. Current everyday smoker, occasional EtOH (none last night), marijuana use. - History Of Current Complaint Stated Complaint: SEISURES/AMS PER EMS Hx Obtained From: Patient Onset/Duration: Resolved Timing: Lasting Minutes Severity Initially: Severe Severity Currently: Mild Character: Responsiveness Aggravating Factor(s): Other - hasn't taken seizure medication in three days Associated Signs And Symptoms: Positive: Seizure, Headache. Negative: Dizziness , Nausea, Vomiting, Fever Related History: Seizure - Allergies/Home Medications Allergies/Adverse Reactions: Allergies Allergy/AdvReac Type Severity Reaction Status Date / Time No Known Allergies Allergy Verified 08/13/18 11:09 Home Medications: Home Medications levETIRAcetam TAB* [Keppra TAB*] 250 mg PO BID 09/23/18 [History Confirmed 09/23] levETIRAcetam TAB* [Keppra TAB*] 500 mg PO BID 09/23/18 [History Confirmed 09/23] PMH/Surg Hx/FS Hx/Imm Hx Endocrine/Hematology History: Denies: Hx Diabetes Cardiovascular History: Denies: Hx Coronary Artery Disease Sensory History: Denies: Hx Contacts or Glasses, Hx Hearing Aid Opthamlomology History: Denies: Hx Contacts or Glasses Neurological History: Reports: Hx Seizures - Surgical History Surgical History: None Surgery Procedure, Year, and Place: none - Family History Known Family History: Negative: Cardiac Disease, Hypertension, Diabetes - Social History Alcohol Use: Occasionally Hx Substance Use: Yes Substance Use Type: Reports: Marijuana Hx Tobacco Use: Yes Smoking Status (MU): Light Every Day Tobacco Smoker Review of Systems Negative: Fever, Chills Negative: Erythema Negative: Sore Throat Negative: Chest Pain Negative: Shortness Of Breath, Cough Negative: Abdominal Pain, Vomiting, Nausea Negative: dysuria, hematuria Negative: Myalgia, Edema Negative: Rash Neurological: Other - POSITIVE: seizure with LOC and unresponsiveness (resolved) ; NEGATIVE: dizziness Positive: Headache All Other Systems Reviewed And Are Negative: Yes Physical Exam - Summary Physical Exam Summary: Constitutional: Well-developed, Well-nourished, Alert. (-) Distressed. Skin: Warm, Dry HENT: Normocephalic; Atraumatic Eyes: Conjunctiva normal Neck: Musculoskeletal ROM normal neck. (-) JVD, (-) Stridor, (-) Tracheal deviation Cardio: Rhythm regular, rate normal, Heart sounds normal; Intact distal pulses; The pedal pulses are 2+ and symmetric. Radial pulses are 2+ and symmetric. (-) Murmur Pulmonary/Chest wall: Effort normal. (-) Respiratory distress, (-) Wheezes, (-) Rales Abd: Soft, (-) tenderness, (-) Distension, (-) Guarding, (-) Rebound Musculoskeletal: (-) Edema Lymph: (-) Cervical adenopathy Neuro: Alert, Oriented x3 Psych: Mood and affect Normal Triage Information Reviewed: Yes Vital Signs Reviewed: Yes - [place] Coma Scale Best Eye Response: 4 - Spontaneous Best Motor Response: 6 - Obeys Commands Best Verbal Response: 5 - Oriented Coma Scale Total: 15 Diagnostics - Laboratory Result Diagrams: 09/23/18 09:02 09/23/18 09:02 Lab Statement: Any lab studies that have been ordered have been reviewed, and results considered in the medical decision making process. - CT Brain CT CT Interpretation Completed By: Radiologist Summary of CT Findings: No intracranial mass or hemorrhage is noted. ED physician has reviewed this report. - EKG 1848 Cardiac Rate: NL - 64 BPM EKG Rhythm: Sinus Rhythm Summary of EKG Findings: No STEMI. Re-Evaluation - Re-Evaluation First Eval Re-Evaluation Time: 13:15 Change: Improved Comment: The patient states he is feeling much better. His headache is not completely gone, but it is dramatically improved since arrival. We discussed discharge home. 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 Per EMS, the patient sustained a seizure and was unresponsive with blood glucose of 33 despite last having breakfast with apple juice this morning. Currently has a headache rated 8/10 in severity but is unsure if he hit his head. Hx of seizures but not DM. He hasnt been taking Keppra for last three days. Neurologist is Dr. Rocha. Upon physical exam, the patient exhibits no acute abnormalities. In the ED course, the patient was administered Keppra and Toradol. Blood work reveals WBC of 12.1, hct of 41, MCH of 32, abs neuts of 10.9 , abs lymphs of 0.5, lactic acid of 2.3, and total protein of 6.3 without any other significant abnormality. Toxicology report reveals <10 serum alcohol. EKG reveals NSR at [address] is negative. Since he usually has headaches after having a seizure, he is cleared for discharge home. I do not suspect meningitis or subarachnoid hemorrhage. He is diagnosed with breakthrough seizure and medication noncompliance and will follow up with Dr. Rocha. He agrees with and understands this plan. - Diagnoses Provider Diagnoses: Breakthrough seizure, Noncompliance with medication regimen Discharge - Sign-Out/Discharge Documenting (check all that apply): Patient Departure - Patient will be discharged home Patient Received Moderate/Deep Sedation with Procedure: No - Discharge Plan Condition: Stable Disposition: HOME Patient Education Materials: Recurrent Seizures in Adults (ED) Referrals: Donavon Rocha MD [Medical Doctor] - 3 Days Additional Instructions: Follow up with Dr. Rocha in 2-3 days. RETURN TO THE EMERGENCY DEPARTMENT FOR ANY NEW OR WORSENING SYMPTOMS. - Billing Disposition and Condition Condition: STABLE Disposition: Home - Attestation Statements Document Initiated by Scribe: Yes Documenting Scribe: Cindy Alston Provider For Whom Scribe is Documenting (Include Credential): Dr. Peyman Ordonez MD Scribe Attestation: I, Cindy Alston, scribed for Dr. Peyman Ordonez MD on 09/23/18 at 1912. Status of Scribe Document: Ready
[2018-09-23 09:18] LABS: ABS Lymphocytes 0.5 10^3/ul (1.0-4.8); ABS Monocytes 0.6 10^3/ul (0-0.8); ABS Neutrophils 10.9 10^3/ul (1.5-7.7); Eosinophil % 0.1 %; Hematocrit 41 % (42-52); Lymphocyte % 3.8 %; Mean Corpuscular HGB Conc 34 g/dL (31-36); Mean Corpuscular Hemoglobin 32 pg (27-31); Mean Corpuscular Volume 92 fL (80-94); Mean Platelet Volume 7.9 fL (7.4-10.4); Platelet Count 208 10^3/uL (150-450); Red Blood Count 4.41 10^6 /uL (4.18-5.48); Red Cell Distribution Width 13 % (10-15); White Blood Count 12.1 10^3/uL (3.5-10.8)
[2018-09-23 09:40] LABS: ALT 14 U/L (7-52); AST 26 U/L (13-39); Albumin 4.2 g/dL (3.2-5.2); Alkaline Phosphatase 48 U/L (34-104); Anion Gap 8 mmol/L (2-11); Blood Urea Nitrogen 12 mg/dL (6-24); CO2 Carbon Dioxide 25 mmol/L (22-32); Calcium 9.1 mg/dL (8.6-10.3); Chloride 107 mmol/L (101-111); EGFR African American 137.3 (>60); EGFR Non-African American 113.5 (>60); Globulin 2.1 g/dL (2-4); Glucose 97 mg/dL (70-100); Magnesium 1.9 mg/dL (1.9-2.7); Potassium 4.6 mmol/L (3.5-5.0); Sodium 140 mmol/L (135-145); Total Protein 6.3 g/dL (6.4-8.9)
[2018-09-23 09:45] LABS: Alcohol < 10 mg/dL (<10)
[2018-09-23 09:59] LABS: TSH (Thyroid Stimulating Horm) 0.53 mcIU/mL (0.34-5.60)
[2018-09-23] MEDS ORDERED: Ketorolac INJ* 30 MG/ML 1 ML VIAL IV PUSH ONE (10:55)
[2018-09-23] MEDS ORDERED: Acetaminophen TAB* 325 MG PO ONE (12:15)
[2018-09-23] MEDS ORDERED: Metoclopramide IV* 5 MG/ML 2 ML VIAL IV SLOW PU ONE (12:15)
[2018-09-23 14:47] VITALS: BP 114/64
--- NOTE | 2018-09-23 16:16 | CONS ---
NEUROLOGY CONSULTATION NOTE: DATE OF CONSULT: 09/23/18 - EMERGENCY DEPT CONSULTING PROVIDER: Dr. Peyman Ordonez. REASON FOR CONSULT: Seizures in a patient with history of epilepsy, but not compliant to medication. CHIEF COMPLAINT: Seizure. HISTORY OF PRESENT ILLNESS: Mr. Todd Bridges is a 32-year-old homeless man who has a history of epilepsy since he was in his late teenage years, who presented with an unwitnessed seizure. The patient stated that he began having seizure since 2005. He was closely monitored by an outpatient neurologist in the past, but he has not seen a neurologist for over 10 years. He stated that he was supposed to take levetiracetam 500 mg twice daily, but he does not like the drowsy effect of the medication and does not take it on a regular basis. He has been taking 250 mg daily, but has not taken any medications for the past 3 days. The patient is currently staying at the [facility] that [facility]. He was apparently brought by EMS after he had a seizure- like event. The patient does not recall the episode. He does not know who contacted EMS. He reports having generalized convulsions at least 1 to 2 times a month for the last year. There were reports that the patient was found to be hypoglycemic with a blood glucose of 33, but this was not confirmed. Currently , the patient is back to his normal self. He is complaining of mild headaches, which he typically has after a seizure. Seizure risk factor, the patient denied any history of meningitis or encephalitis. He denied any brain or spinal cord surgeries. He denied any febrile seizures. There is no family history of epilepsy. The patient stated that he was on phenytoin as a teenager, but he stopped taking the medication due to being seizure free for a long period of time. PAST MEDICAL HISTORY: Seizure disorder. PAST SURGICAL HISTORY: None. MEDICATIONS: He is supposed to be taking Keppra 500 mg twice daily. He informed me that he has 250, 500, and 750 mg tablets at home because he does not use the medication. ALLERGIES: No known drug allergies. FAMILY HISTORY: No family history of stroke or seizures. SOCIAL HISTORY: The patient denied any alcohol use, but he does smoke marijuana daily. Other history shows that the patient also consumes alcohol on a daily basis, but he denied that with me today. REVIEW OF SYSTEMS: A 14-point review of systems was obtained and otherwise negative except for what is mentioned in the HPI. PHYSICAL EXAM: Vitals: Temperature of 98.6, pulse of 61, respiratory rate of 18, oxygen saturation of 100, and blood pressure of 114/64. General: Well- nourished, well-developed man in no acute distress. Head: Normocephalic, atraumatic without any obvious abnormality. Eyes: Conjunctivae/corneas are clear. Neck is supple and symmetrical with no carotid bruits. No lymphadenopathy. Lungs are clear to auscultation bilaterally, nonlabored breathing. Cardiovascular: Regular rate and rhythm with normal S1, S2. Extremities: Normal range of motion with no cyanosis. Skin: No skin lesions or lacerations. Psych: Affect is broad and slightly depressed mood, otherwise easy to establish rapport. Neurological Examination: Mental Status: Awake, alert, oriented to person, place, and time, and general circumstances. He does have some mild psychomotor slowing. Cranial Nerves: Normal confrontation testing bilaterally. Pupils are mid range and reactive to light. Sensation is intact on the forehead, cheeks, and jaw region bilaterally. No facial droop. He is able to hear throughout the history process. Symmetrical palatal elevation. Tongue is symmetric and midline with no atrophy or fasciculation. Motor Examination: No abnormal movement or pronator drift. He has got 5/5 strength in the upper and lower extremities with slight give way activation of the lower extremities bilaterally. Reflexes: 2+ throughout the brachioradialis , biceps, triceps, patella, and ankle bilaterally. Plantar flexor and plantar response bilaterally. Sensation is intact to light touch throughout. Coordination: Normal [id number] and [id number] testing. Gait and station narrow based and normal stance. DIAGNOSTIC STUDIES/LAB DATA: Labs, imaging, and other diagnostic testing: WBC 12.1, hemoglobin of 14, hematocrit of 41, platelet count of 208. Sodium of 140 , potassium 4.6, chloride is 107, magnesium is 1.9. TSH is 0.53. Serum alcohol less than 10. Lactic acid is 2.3. CT head without contrast showed no evidence of intracranial abnormality. ASSESSMENT AND RECOMMENDATIONS: Mr. 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 1. Breakthrough seizure - unwitnessed. Please restart levetiracetam 500 mg b.i.d. The patient denied any side effects of irritability or agitation, but does have some drowsiness with levetiracetam. Other medications that we discussed and starting included Depakote. The patient preferred to continue on levetiracetam for now, but if the drowsiness persists, we can switch him to Depakote as an outpatient. The patient was supposed to follow up with me in the clinic today, but due to the seizure was hospitalized for further evaluation. Please set up an appointment to see me as an outpatient in 2 to 3 weeks. 2. Postseizure headaches - continue acetaminophen or NSAIDs to control the pain. 3. Homelessness - the patient already has a social services designee and [facility] with [facility]. He is looking to obtain SSDI due to his seizures. 4. Marijuana use - education and counseling was provided. The patient was advised to stop smoking marijuana and consuming alcohol. 5. Seizure precautions including practicing good sleep hygiene was discussed with the patient. He should not be driving or operating any heavy machinery. He verbalized understanding. He should not be driving until cleared by me or by other neurologists as an outpatient. [id number]/CPS #: [id number] DALE
== END 2018-09-23 14:20 | disposition home or self-care (01) ==
LOC: ED 08:38
DX: R56.9 Unspecified convulsions (principal); R51 Headache; F17.210 Nicotine dependence, cigarettes, uncomplicated; Z91.14 Patient's other noncompliance with medication regimen
CPT/HCPCS: 36415; 70450; 80053; 80177; 80320; 83605; 83735; 84443; 84484; 85025; 93005; 96365; 96375; 99283; A9270-GY; G0480; J1885; J1953; J2765